=== PATIENT | female | born 2000 | race Caucasian/White ===

== ENCOUNTER 2019-04-26 23:15 | Emergency (ER) | payer BC ==
[~2019-04-26] VITALS: Ht 170.2 cm; Wt 83.4 kg
[2019-04-26 23:17] VITALS: BP 135/87
--- NOTE | 2019-04-26 23:26 | NUR ---
FIRST CONTACT WITH PT. PT C/O RIGHT EAR PAIN X1 DAY. PT DENIES ANY OTHER SYMPTOMS AT THIS TIME. PT'S AOX4. RESPS EVEN AND UNLABORED. AWAITING EDMD ASSESSMENT AT THIS TIME.
--- NOTE | 2019-04-26 23:37 | NUR ---
PT GIVEN DC INSTRUCTIONS AND SCRIPTS. PT EDUCATED REGARDING DC MEDICATIONS. PT'S AOX4. RESPS EVEN AND UNLABORED. PT AMB TO DC WITH STEADY GAIT. NO ACUTE DISTRESS AT DC.
== END 2019-04-26 23:38 | disposition home or self-care (01) ==
LOC: ED 23:32
DX: H66.91 Otitis media, unspecified, right ear (principal)
CPT/HCPCS: 99283